=== PATIENT | female | born 1945 | race Caucasian/White ===

== ENCOUNTER 2017-04-02 02:25 | Inpatient (IN) | payer OTHER, MEDICARE ==
[~2017-04-02] VITALS: Ht 160 cm; Wt 64.4 kg
[~2017-04-02 02:25] MED LIST: BILBERRY EXTRAC30 MG PO; CALCIUM 600 +1 EAC5 PO; FLAX OIL1000 M1 PO; LISINOPRIL10 M1 PO; MAGNESIUM400 M1 PO; SYNTHROID25 MCG PO; TURMERIC500 M2 PO; VITAMIN B-12500 MC2 PO; VITAMIN B-650 M2 PO; VITAMIN C1000 M4 PO; VITAMIN D2000 UNIT PO; VITAMIN E400 UNI1 PO
--- NOTE | 2017-04-02 08:33 | Admission Core Measures ---
Acute Coronary Syndrome (CM) ACS Core Measures Acute Coronary Syndrome Diagnosis No Congestive Heart Failure (NEW) CHF Core Measures Congestive Heart Failure Diagnosis No Cerebrovascular Accident (NEW) CVA Core Measures CVA/TIA Diagnosis No Venous Thromboembolism VTE Core [place] (View Protocol) VTE Risk Factors Surgery No Mechanical VTE Prophylaxis d/t N/A MechProphylax Ordered No VTE Pharm Prophylaxis d/t NA PharmProphylax ordered Problem List As ranked by this Provider includes Assessment & Plan 1. Primary osteoarthritis of right hip HOME MEDS Home Med List Ascorbic Acid (Vitamin C) 1,000 MG TABLET 1 TAB PO DAILY SUPPLEMENT (Reported ) Bilberry Fruit Extract (Bilberry Extract) 30 MG CAPSULE 2 CAP PO DAILY SUPPLEMENT (Reported) Calcium Carbonate/Vitamin D3 (Calcium 600 + Vit D Softgel) 600 MG-500 CAPSULE 2 CAP PO DAILY SUPPLEMENT (Reported) Cholecalciferol (Vitamin D3) (Vitamin D) 2,000 UNIT CAPSULE 2 CAP PO DAILY SUPPLEMENT (Reported) Cyanocobalamin (Vitamin B-12) (Vitamin B-12) 500 MCG TABLET 1 TAB PO DAILY SUPPLEMENT (Reported) Flaxseed Oil (Flax Oil) 1,000 MG CAPSULE 1 CAP PO DAILY SUPPLEMENT (Reported) Levothyroxine Sodium (Synthroid) 25 MCG TABLET 1 TAB PO DAILY THYROID ( Reported) Lisinopril 10 MG TABLET 1 TAB PO DAILY BP (Reported) Magnesium Oxide (Magnesium) 400 MG CAPSULE 1 CAP PO DAILY SUPPLEMENT ( Reported) Pyridoxine HCl (Vitamin B-6) 50 MG TABLET 1 TAB PO DAILY SUPPLEMENT (Reported ) Turmeric Root Extract (Turmeric) (Unknown Strength) CAPSULE (Unknown Dose) PO DAILY SUPPLEMENT (Reported) Vitamin E (Dl,Tocopheryl Acet) (Vitamin E) 400 UNIT CAPSULE 1 CAP PO DAILY SUPPLEMENT (Reported)
--- NOTE | 2017-04-02 08:58 | Surg Short-stay <48hrs Dis Sum ---
Visit Information Visit Dates Admission Date: 04/02/17 Discharge Date: 04/04/17 Surgical Short Stay DC Summary Admission Diagnosis: right hip primary osteoarthritis Final Diagnosis: Same, s/p right total hip arthroplasty Procedure(s): right total hip arthroplasty Summary/Significant Findings: Patient was admitted to the hospital for an elective total joint replacement. Procedure was tolerated well and patient was transferred to a general surgical floor. Diet was advanced and tolerated. Physical therapy performed evaluation and treatment. At time of hospital discharge, vital signs were stable, neurovascular status was intact, and pain was controlled with the use of oral pain medications. Condition at Discharge: stable Discharge Disposition: home health services Discharge instructions provided to patient/family: Yes Post discharge follow-up plan: Follow up with Dr. Torres in 6 weeks from date of surgery. Please call his office to schedule/confirm this appointment.
[2017-04-02] MEDS ORDERED: MIRALAX17 G1 PO (11:40)
[2017-04-02] MEDS ORDERED: COLACE100 M1 PO (11:40)
[2017-04-02] MEDS ORDERED: PROTONIX20 M1 PO (11:40)
[2017-04-02] MEDS ORDERED: DILAUDID2 M1 PO (11:40)
[2017-04-02] MEDS ORDERED: ASPIRIN EC325 M2 PO (11:40)
--- NOTE | 2017-04-02 11:43 | Patient Discharge Instructions ---
Discharge Instructions General Discharge Information You were seen/treated for: right hip pain, osteoarthritis You had these procedures: right total hip arthroplasty Watch for these problems: Increasing pain despite the use of pain medication Increasing redness, warmth or swelling Drainage of any type from incision Inability to bear weight on operative leg Persistent nausea and vomiting Fever greater than 101.5 degrees Other wound care: Please keep wound clean and dry. No ointments or lotions of any type on or near incision. Your dressing will be changed by your nurse on the second day after your surgery. Daily dry dressing changes are recommended each day thereafter. Do not soak your wound- no tub baths/swimming. You may shower 48hr after surgery. Special Instructions: Aspirin: You are taking this medication to help prevent blood clot formation. Please take with food to protect your stomach lining. Please take as directed. Constipation: Pain medication can cause constipation. It is recommended that you take Colace and Miralax each day. Discontinue this medication if you develop loose stool or diarrhea. If you wish to continue this medication, it is available over the counter. If you are unable to move your bowels or unable to pass gas and are developing bloating, nausea, or vomiting as a result, please contact your doctor. Protonix (pantoprazole): Take this medication while on high dose aspirin to protect your stomach lining. Diet Recommended Diet: Regular Activity Activity Limited to: Weight bear as tolerated Additional ACTIVITY Info: Use assistive devices as needed Acute Coronary Syndrome Inclusion Criteria At DC or during hospital stay patient has or had the following: ACS DIAGNOSIS No Discharge Core Measures Meds if any: Prescribed or Continued at Discharge Meds if any: NOT Prescribed or Continued at Discharge Congestive Heart Failure Inclusion Criteria At DC or during hospital stay patient has or had the following: CHF DIAGNOSIS No Discharge Core Measures Meds if any: Prescribed or Continued at Discharge Meds if any: NOT Prescribed or Continued at Discharge Cerebrovascular accident Inclusion Criteria At DC or during hospital stay patient has or had the following: CVA/TIA Diagnosis No Discharge Core Measures Meds if any: Prescribed or Continued at Discharge Meds if any: NOT Prescribed or Continued at Discharge Venous thromboembolism Inclusion Criteria VTE Diagnosis No VTE Type NONE VTE Confirmed by (Test) NONE Discharge Core Measures - Per Current guidelines, there needs to be overlap - treatment for the first 5 days of Warfarin therapy. - If discharged on Warfarin prior to 5 days of - overlap therapy, the patient will need to be - assessed for post discharge needs including - *Post discharge parental anticoagulation - *Warfarin and/or parental anticoagulation education - *Follow up date to check INR post discharge At least 5 days overlap therapy as Inpatient No Meds if any: Prescribed or Continued at Discharge Note: Overlap Therapy is Warfarin and Anticoagulant Meds if any: NOT Prescribed or Continued at Discharge
--- NOTE | 2017-04-02 14:51 | PN- Orthopedic ---
Subjective Subjective: POC feeling ok- still in PACU awaiting bed assignment. BLE still "numb", unable to move. No cp/sob/n/v. hungry. due to void postop. Objective Vital Signs and I&Os BP; 131/65 HR61 100%on nc RR 14 Physical Exam: gen- nad card- s1s2 rrr pulm- ctab abd- soft nt ext- r hip dressing cdi, hemovac with minimal serosang drain, calves soft, alps on, able to move legs, though no sensation Assessment/Plan Assessment/Plan A- POD0 sp R JAKE, stable, with residual effects of spinal anesthesia liting motor/sensory of LE, awating bed assisgnment for floor. P- ASA 325mgBID, alps oob, wbat, pt reg diet as tolerated dtv postop, HL once good po intake and voiding prn pain meds home meds will recheck later once spinal worn off will dw attending Core Measures Venous Thromboembolism VTE Risk Factors Surgery No Mechanical VTE Prophylaxis d/t N/A MechProphylax Ordered No VTE Pharm Prophylaxis d/t NA PharmProphylax ordered
--- NOTE | 2017-04-02 14:55 | Operative Report ---
Operative/Inv Procedure Report Surgery Date: 04/02/17 Name of Procedure: Right total hip replacement Pre-Operative Diagnosis: Primary right hip DJD Post-Operative Diagnosis: Same Estimated Blood Loss: 250 Surgeon/Helper Driver: Brian COOMBS,Suhail Mcmanus Anesthesia: block Operative/Procedure Note Note: Description of Procedure: The patient was taken to the operating room and positively identified. After induction of spinal anesthesia and administration of appropriate pre-operative antibiotics, the patient was positioned supine on the operating room table and all bony prominences were well padded. After performing a surgical timeout, the right lower extremity was prepped and draped in the usual sterile fashion. A direct anterior approach was made to the right hip. The incision was carried sharply through superficial soft tissues to the level of the fascia. Meticulous hemostasis was maintained with Bovie electocautery. The fascia over the tensor fascia samantha muscle was opened sharply and the interval between the TFL and the sartorius was entered bluntly taking care to stay lateral to the lateral femoral cutaneous nerve. Retractors were placed around the femoral neck and the pericapsular fat was identified. The ascending branches of the lateral femoral circumflex vessels were identified and carefully coagulated. The pericapsular fat and anterior capsule were then resected. A napkin ring osteotomy was performed and the femoral head was removed without difficulty. Attention was then turned to the acetabulum. After appropriate placement of retractors, the acetabulum was exposed. Soft tissue was cleaned from the acetabular margin and notch. Overhanging osteophytes were removed and the teardrop was exposed. The acetabulum was then sequentially reamed to accept a 54 mm Lilli Tritanium hemispherical solid shell. This was impacted into place in the appropriate position and fitted with a 36 mm Trident X3 zero degree polyethylene insert. Attention was then turned to the femur. After performing the appropriate ligament releases, the proximal femur was exposed. It was then sequentially broached to accept a size 3 Lilli Accolade II stem. This was trialed for leg length and stability. The trial component was removed and the final component was impacted into place. The trunnion was carefully cleaned and fit with a 36 mm, +5 Biolox delta ceramic femoral head. The hip was reduced and put through a full range of motion and found to be stable. The articular space was then irrigated with sterile saline. The periarticular soft tissues were infilitrated with Marcaine. The fascial layer was closed with interrupted #1 vicryl suture and the skin was re-approximated with interrupted 2 -0 vicryl. The skin was closed with a running 3-0 V-Lock suture. Steri-strips and a sterile dressing were applied. The patient was awakened and taken to the recovery room in satisfactory condition.
--- NOTE | 2017-04-02 14:56 | RADIOLOGY REPORT ---
EXAMINATION: XR HIP, RIGHT CLINICAL INFORMATION: Post right hip replacement COMPARISON: None TECHNIQUE: Two views of the right hip. FINDINGS: Evidence of hip replacement. No opaque cement. The hardware appears intact and appropriately positioned. There is a drain present. No definite evidence of a periarticular mass or collection IMPRESSION: No evidence of immediate complication following right hip replacement
[2017-04-02 16:10] VITALS: BP 110/60
[2017-04-02 22:14] VITALS: BP 110/60
[2017-04-02 22:18] VITALS: BP 110/60
[2017-04-03 02:00] VITALS: BP 90/52
--- NOTE | 2017-04-03 07:52 | PN- Orthopedic ---
Subjective Subjective: POD#1 S/P RIGHT JAKE NO MAJOR ISSUES OVERNIGHT DENIES CP, SOB, NO N+V VOIDING INDEPENDENTLY HAS NOT BEEN OOB WITH PT YET Objective Vital Signs and I&Os Vital Signs Date Time Temp Pulse Resp B/P B/P Pulse O2 O2 Flow FiO2 Mean Ox Delivery Rate 04/03 0200 98.1 68 20 90/52 98 Room Air / 2218 97.8 67 20 110/60 98 04/02 2214 97.8 67 20 110/60 98 04/02 1610 97.0 60 16 110/60 96 Room Air Intake & Output / 0800 04/03 0000 04/02 1600 04/02 0800 04/02 0000 04/01 1600 Intake Total 805 Output Total 750 Balance 55 Intake, IV 525 Intake, Oral 280 Output, 150 Drainage Output, Urine 600 Patient 142 lb Weight Weight Reported by Patient Measurement Method Physical Exam: CV: RRR LUNGS: CLEAR ABD: SOFT, +BS EXT: DRSG DRY DISTAL CMS INTACT HEMOVAC: SNAGUINOUS DRAINAGE Assessment/Plan Assessment/Plan ORTHO STABLE PLAN OOB WITH PT THIS AM TITRATE PAIN MEDS D/C IVF F/ AM LABS POSSIBLE D/C HOME LATER TODAY Core Measures Venous Thromboembolism VTE Risk Factors Surgery No Mechanical VTE Prophylaxis d/t N/A MechProphylax Ordered No VTE Pharm Prophylaxis d/t NA PharmProphylax ordered
[2017-04-03 08:38] LABS: ABSOLUTE BASOPHIL COUNT 0 /CUMM (0.0-0.2); ABSOLUTE EOSINOPHIL COUNT 0 /CUMM (0.0-0.7); ABSOLUTE GRANULOCYTE CT 7.1 /CUMM (1.4-6.5); ABSOLUTE MONOCYTE COUNT 0.7 /CUMM (0.10-0.60); BASOPHIL % 0.2 % (0.0-2.0); EOSINOPHIL % 0.1 % (0-5); GRANULOCYTE % 80.2 % (42.2-75.2); HEMATOCRIT 28.7 % (37-47); MEAN CORPUSCULAR HGB 30.3 PG (27.0-31.0); MEAN CORPUSCULAR HGB CONC 33.7 G/DL (33.0-37.0); MEAN CORPUSCULAR VOLUME 89.8 FL (81.0-99.0); MEAN PLATELET VOLUME 8.4 FL (7.4-10.4); PLATELET COUNT 151 /CUMM (130-400); RBC DISTRIBUTION WIDTH 13.8 % (11.5-14.5); RED BLOOD CELL CT 3.19 /CUMM (4.20-5.40); WHITE BLOOD CELL COUNT 8.8 /CUMM (4.8-10.8)
[2017-04-03 14:10] VITALS: BP 100/54
[2017-04-03 22:31] VITALS: BP 104/62
[2017-04-04 06:05] VITALS: BP 120/70
--- NOTE | 2017-04-04 07:04 | PN- Orthopedic ---
Subjective Subjective: POD#2 S/P RIGHT JAKE NO MAJOR ISSUES OVERNIGHT DENIES CP, SOB, NO N+V WITH DIET AMBULATING WELL WITH PT VOIDING INDEPENDENTLY Objective Vital Signs and I&Os Vital Signs Date Time Temp Pulse Resp B/P B/P Pulse O2 O2 Flow FiO2 Mean Ox Delivery Rate / 0605 97.9 74 20 120/70 96 Room Air 04/03 2231 98.1 74 20 104/62 96 Room Air 04/03 1629 Room Air Room Air 04/03 1410 97.5 85 20 100/54 100 / 0952 98.1 68 20 120/60 Intake & Output / 0800 04/04 0000 04/03 1600 04/03 0800 04/03 0000 04/02 1600 Intake Total 200 290 900 700 805 Output Total 400 820 750 Balance 200 -110 900 -120 55 Intake, IV 10 300 600 525 Intake, Oral 200 280 600 100 280 Output, 120 150 Drainage Output, Urine 400 700 600 Patient 142 lb Weight Weight Reported by Patient Measurement Method Physical Exam: CV: RRR LUNGS: CLEAR ABD: SOFT, +BS EXT: NO CALF TENDERNESS BILAT WOUND C/D/I DISTAL CMS BILAT Assessment/Plan Assessment/Plan ORTHO STABLE PLAN CONT CURRENT REGIME D/C HOME WITH VNS LATER TODAY F/U DR FELIX [id number] Core Measures Venous Thromboembolism VTE Risk Factors Surgery No Mechanical VTE Prophylaxis d/t N/A MechProphylax Ordered No VTE Pharm Prophylaxis d/t NA PharmProphylax ordered
[2017-04-04 08:45] VITALS: BP 120/70
== END 2017-04-04 11:20 | disposition home health service (06) | DRG 470 ==
LOC: SDA 02:25 → 2NA 02:25 → SDA 07:00 → ENRESERV 14:29 → ENTRNSPT 15:51 → 2NA 16:09 → EDTRNSPT 16:10 → EDTRNSPTSTS 16:10 → CMPTRNSPT 16:16 → ENPENDDIS 04-04 07:21 → 2NA 04-04 11:20
PROVIDERS: Physician Assistant Surgical
PROC: 0SR904A Replacement of Right Hip Joint with Ceramic on Polyethylene Synthetic Substitute, Uncemented, Open Approach (ICD-10-PCS; principal; 2017-04-02)
DX: M16.11 Unilateral primary osteoarthritis, right hip (principal); E03.9 Hypothyroidism, unspecified; Z85.3 Personal history of malignant neoplasm of breast; I10 Essential (primary) hypertension; M85.80 Other specified disorders of bone density and structure, unspecified site
CPT/HCPCS: 2NAP; 36415; 73502-RT; 82436; 97110-GO; 97116-GO; 97161-GP; 97530-GO; J0690; J0735; J1885; J2405; J2550; J7042